=== PATIENT | female | born 1985 | race Two or more races ===

== ENCOUNTER 2017-05-29 20:53 | Emergency (ER) | payer BC ==
[~2017-05-29] VITALS: Ht 154.9 cm; Wt 84.4 kg
[2017-05-29] MEDS ORDERED: PROAIR HFA ORAL INH (200 PFS) (21:13)
[2017-05-29 21:45] LABS: *BILIRUBIN,URIN NEGATIVE (NEGATIVE); *BLOOD, URINE 2+ (NEGATIVE); *CLARITY,URINE SLIGHTLY CLOUDY (CLEAR); *COLOR,URINE YELLOW (YELLOW); *KETONES,URINE NEGATIVE (NEGATIVE); *PROTEIN,URINE NEGATIVE (NEGATIVE); *UROBILINOGEN,URINE 0.2 E.U./dl (NORMAL); LEUKOCYTE ESTERASE ,URINE NEGATIVE (NEGATIVE); NITRITE, URINE NEGATIVE (NEGATIVE); UGLUCOSE NEGATIVE (NEGATIVE)
[2017-05-29 21:48] LABS: *URINE HCG, QUAL NEGATIVE (NEGATIVE)
[2017-05-29 21:50] LABS: BASOPHILS % (AUTO) 0.5 % (0.0-2.0); EOSINOPHILS # (AUTO) 0.2 K/uL (0.0-0.7); EOSINOPHILS % (AUTO) 2.4 % (0.0-7.0); HEMATOCRIT 39.5 % (37-47); HEMOGLOBIN 13.1 G/DL (12.0-16.0); LYMPHOCYTES # (AUTO) 3.2 K/UL (0.8-4.8); LYMPHOCYTES % (AUTO) 34.2 % (20.5-51.5); MEAN CORPUSCULAR HEMOGLOBIN 28.6 UUG (27.0-31.0); MEAN CORPUSCULAR HGB CONC 33 g/dL (32.0-37.0); MEAN CORPUSCULAR VOLUME 86.4 FL (81.0-99.0); MONOCYTES # (AUTO) 0.5 K/UL (0.1-1.30); MONOCYTES % (AUTO) 5.7 % (0.0-11.0); NEUTROPHILS # (AUTO) 5.5 K/UL (1.8-8.9); NEUTROPHILS % (AUTO) 57.2 % (38.5-71.5); PLATELET COUNT (AUTO) 299 K/UL (150-450); RED BLOOD CELL COUNT(AUTO) 4.58 MIL/UL (4.2-5.4); WHITE BLOOD COUNT (AUTO) 9.4 K/UL (4.0-11.2)
[2017-05-29 21:59] LABS: CREATININE 0.8 mg/dL (0.6-1.3); POTASSIUM 3.8 mmol/L (3.5-5.1)
[2017-05-29 22:04] LABS: BACTERIA,URINE MODERATE /HPF (NONE SEEN); SQUAMOUS EPITHELIAL CELL,UR FEW /HPF (NONE SEEN); URINE AMORPHOUS PHOSPHATES FEW /HPF; WBC,URINE 0-3 /HPF (0-3)
[2017-05-29 22:05] LABS: BILIRUBIN,TOTAL 0.5 mg/dL (0.2-1.0); TOTAL PROTEIN, SERUM 7.9 g/dL (6.4-8.2)
[2017-05-29 22:13] LABS: THYROID STIMULATING HORMONE 2.02 mIU/mL (0.358-3.740)
--- NOTE | 2017-05-29 23:27 | NUR ---
Patient discharged to home in stable conditon. Written and verbal after care instructions given. Patient verbalizes understanding of instructions.
== END 2017-05-29 23:27 | disposition home or self-care (01) ==
LOC: ER 20:57
DX: J45.909 Unspecified asthma, uncomplicated (principal); R51 Headache; W10.9XXA Fall (on) (from) unspecified stairs and steps, initial encounter; Y93.89 Activity, other specified; Y92.9 Unspecified place or not applicable; Y99.9 Unspecified external cause status
CPT/HCPCS: 36415; 70030-TC; 70450; 71010; 84443; 84703; 85025; 93005; A4663